=== PATIENT | male | born 1990 | race Hispanic/Latino ===

== ENCOUNTER 2024-11-22 23:40 | Emergency (ER) | payer SELFPAY, OTHER ==
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
--- NOTE | 2024-11-23 05:40 | RAD REPORT ---
EXAM DESCRIPTION: Hand Left 3 View RadLex: XR HAND 3 OR MORE VIEWS LEFT CLINICAL HISTORY: 34 years Male, PAIN COMPARISON: None. FINDINGS: 3 views of the left hand. Normal osseous mineralization. No acute fracture or dislocation. Joint spac es are intact. Soft tissues are unremarkable. IMPRESSION: No acute radiographic abnormality. Electronically signed by: Ale Brunson MD 11/23/2024 01:48 AM CDT RP Due to temporary technical issues with the [employer] reporting system, reports are being nida d by the in-house radiologist without review as a courtesy to ensure prompt reporting the interpreting radiologist is fully responsible for the content of the report. Transcribed Date/Time: 11/23/2024 5:40 AM
[2024-11-23 10:11] VITALS: TEMP 98.9
[2024-11-23 10:13] VITALS: BP 128/74; O2SAT 98
== END 2024-11-23 02:02 | disposition home or self-care (01) ==
LOC: ER 23:40
DX: S60.222A Contusion of left hand, initial encounter (principal); V89.2XXA Person injured in unspecified motor-vehicle accident, traffic, initial encounter